=== PATIENT | male | born 1970 | race Caucasian/White ===

== ENCOUNTER 2016-09-03 18:35 | Emergency (ER) | payer OTHER ==
[~2016-09-03] VITALS: Ht 167.6 cm; Wt 83.1 kg
[~2016-09-03 18:35] MED LIST: AMARYL2 MG PO; AMBIEN10 MG PO; AMBIEN5 MG PO; BACLOFEN10 MG PO; CARAFATE100 MG/ML PO; COMPAZINE5 MG PO; DILAUDID2 MG PO; ELAVIL75 MG PO; FLEXERIL10 MG PO; GABAPENTIN300 MG PO; GLUCOPHAGE1000 MG PO; IBUPROFEN200 M1 PO; LISINOPRIL10 MG PO; LISINOPRIL2.5 MG PO; LOSARTAN POTASS50 MG PO; MORPHINE SULFAT10 M3 PO; MOTRIN IB200 MG PO; MOTRIN800 MG PO; NEURONTIN300 MG PO; OXCARBAZEPINE600 MG PO; OXYCODONE HCL10 MG PO; OXYCONTIN40 MG PO; PAXIL; PAXIL20 MG PO; PAXIL30 MG PO; PAXIL40 MG PO; PERCOCET 10/1 TABLET PO; PERCOCET 5/31 TABLET PO; PHENERGAN25 MG PR; PREDNISONE10 MG PO; PROTONIX40 MG PO; RANITIDINE; RANITIDINE HCL150 M1 PO; VALIUM5 MG PO; ZANAFLEX; ZANAFLEX4 M1 PO; ZANAFLEX4 MG PO; ZOFRAN ODT4 MG PO; ZOFRAN ODT8 MG PO; ZOFRAN4 MG PO
[2016-09-03] MEDS ORDERED: FLEXERIL10 MG PO (19:02)
[2016-09-03] MEDS ORDERED: NAPROSYN500 MG PO (19:02)
[2016-09-03 19:55] VITALS: BP 133/74
== END 2016-09-03 19:56 | disposition home or self-care (01) ==
LOC: EME 18:35
DX: S06.0X0A Concussion without loss of consciousness, initial encounter (principal); M54.5 Low back pain; V44.5XXA Car driver injured in collision with heavy transport vehicle or bus in traffic accident, initial encounter; G89.29 Other chronic pain; E11.9 Type 2 diabetes mellitus without complications; I10 Essential (primary) hypertension; K21.9 Gastro-esophageal reflux disease without esophagitis
CPT/HCPCS: 99281; 99284

== ENCOUNTER 2016-09-07 21:54 | Emergency (ER) | payer OTHER ==
[~2016-09-07] VITALS: Ht 167.6 cm; Wt 85.0 kg
[~2016-09-07 21:54] MED LIST changes: +NAPROSYN500 MG PO
[2016-09-07] MEDS ORDERED: ZOFRAN ODT4 MG PO (22:27)
[2016-09-07 22:50] VITALS: BP 147/100
== END 2016-09-07 22:53 | disposition home or self-care (01) ==
LOC: EME 21:54
DX: S06.0X9D Concussion with loss of consciousness of unspecified duration, subsequent encounter (principal); M62.838 Other muscle spasm
CPT/HCPCS: 99281; 99283; J1885